=== PATIENT | male | born 1995 ===

== ENCOUNTER 2020-09-08 14:53 | Emergency (ER) | payer SELFPAY ==
--- NOTE | 2020-09-08 15:00 | NUR ---
CALLED FOR PT. PT NOT IN LOBBY
--- NOTE | 2020-09-08 15:12 | NUR ---
CALLED FOR PT. PT NOT IN LOBBY
--- NOTE | 2020-09-08 17:19 | NUR ---
[id number]
== END 2020-09-08 17:20 | disposition left against medical advice (07) ==
LOC: ED 15:23
DX: R10.30 Lower abdominal pain, unspecified (principal); Z53.21 Procedure and treatment not carried out due to patient leaving prior to being seen by health care provider

== ENCOUNTER 2020-09-08 20:09 | Emergency (ER) | payer SELFPAY ==
[~2020-09-08] VITALS: Ht 180.3 cm; Wt 87.0 kg
[2020-09-08 20:52] LABS: BASOPHILS % (AUTO) 1 % (0-1); EOSINOPHILS % (AUTO) 4 % (1-7); LYMPHOCYTES % (AUTO) 33 % (22-44); MEAN CORPUSCULAR HEMOGLOBIN 31.9 pg (27.5-34.5); MEAN CORPUSCULAR HGB CONC 34.2 g/dL (33.2-36.2); MEAN PLATELET VOLUME 9.1 fL (7.4-10.4); MONOCYTES % (AUTO) 9 % (2-9); NEUTROPHILS % (AUTO) 54 % (42-75); PLATELET COUNT 245 x10^3/uL (130-400); RED BLOOD COUNT 4.78 x10^6/uL (4.38-5.82); RED CELL DISTRIBUTION WIDTH 12.4 % (9.4-14.8)
[2020-09-08 20:56] LABS: MD NO
[2020-09-08 21:02] LABS: ALANINE AMINOTRANSFERASE 21 U/L (12-78); ALBUMIN 4.1 g/dL (3.4-5.0); ANION GAP 5 mmol/L (5-15); CALCIUM 9.2 mg/dL (8.5-10.1); CHLORIDE 105 mmol/L (98-107); CREATININE 1.04 mg/dL (0.7-1.3)
[2020-09-08 21:04] LABS: ALKALINE PHOSPHATASE 75 U/L (45-117); BILIRUBIN,TOTAL 1.2 mg/dL (0.2-1.0); TOTAL PROTEIN 7.8 g/dL (6.4-8.2)
--- NOTE | 2020-09-08 21:22 | NUR ---
PT AMBUALTORY BACK FROM TRIAGE C STEADY GAIT. PT C/O EPIGASTRIC PAIN "VOMITING A SMALL AMOUNT OF BLOOD LAST NIGHT" & A KNOT IN ABD. PT STATES HE WAS HERE EARLIER TODAY BUT IT WAS VERY BUSY SO HE LEFT & WENT TO URGENT CARE, BUT DIDNT FEEL LIKE HE GOT AN ANSWERS & STILL FEELING NAUSEATED.
[2020-09-08] MEDS ORDERED: MAALOX/HYOSCYAMINE/LIDOCAINE 45 ML BTL PO ONE (22:00)
[2020-09-08] MEDS ORDERED: OMEPRAZOLE 20 MG CAPSULE.DR PO ONE (22:00)
[2020-09-08] MEDS ORDERED: MAALOX/HYOSCYAMINE/LIDOCAINE 45 ML BTL ONE (22:08)
[2020-09-08] MEDS ORDERED: OMEPRAZOLE 20 MG CAPSULE.DR ONE (22:08)
[2020-09-08 22:14] VITALS: BP 121/58
== END 2020-09-08 23:00 | disposition home or self-care (01) ==
LOC: ED 20:10
DX: K29.01 Acute gastritis with bleeding (principal); J45.909 Unspecified asthma, uncomplicated
CPT/HCPCS: 36415; 80053; 83690; 85025; 99283